=== PATIENT | female | born 1965 ===

== ENCOUNTER 2018-05-21 11:22 | Inpatient (IN) | payer OTHER ==
[~2018-05-21] VITALS: Ht 167.6 cm; Wt 73.9 kg
--- NOTE | 2018-05-21 12:35 | NUR ---
SE RECIBE PTE ALERTA Y ORIENTADA EN TIEMPO, LUGAR Y PERSONA QUIEN REFIERE ABCESO EN AREA PUBICA. SE OBSERVA ABCESO Y AREA PUBICA ENROJECIDA. SE ESTELA S/V Y SE UBICA PTE EN AREA DE OBSERVACION PASILLO.
--- NOTE | 2018-05-21 14:44 | NUR ---
EVALUA PACIENTE Y ORDENA TX MEDICO DEL CUAL SE ORIENTA PACIENTE LA MISMA REFIERE ENTENDER. SE COLECTAN MUESTRAS DE LABORATORIOS Y ADMINISTRAN MEDICAMENTOS ROSAS ORDEN MEDICA BAJO MEDIDAS ASEPTICAS.
[2018-05-24] MEDS ORDERED: MUPIROCIN22 GM NASAL (11:51)
[2018-05-24] MEDS ORDERED: CHLORHEXIDINE118 M1 TOP (11:51)
[2018-05-24] MEDS ORDERED: LEVAQUIN750 MG PO (11:52)
== END 2018-05-24 12:32 | disposition left against medical advice (07) | DRG 603 ==
LOC: ER 11:22 → MEDI 21:14
PROVIDERS: ADMIT Internal Medicine
PROC: 0H97X0Z Drainage of Abdomen Skin with Drainage Device, External Approach (ICD-10-PCS; principal; 2018-05-22)
PROC: 8E0ZXY6 Isolation (ICD-10-PCS; 2018-05-24)
DX: L03.311 Cellulitis of abdominal wall (principal); R65.10 Systemic inflammatory response syndrome (SIRS) of non-infectious origin without acute organ dysfunction; L02.231 Carbuncle of abdominal wall; L02.211 Cutaneous abscess of abdominal wall; I10 Essential (primary) hypertension; B95.61 Methicillin susceptible Staphylococcus aureus infection as the cause of diseases classified elsewhere